=== PATIENT | male | born 1975 | race Caucasian/White ===

== ENCOUNTER 2019-02-23 21:03 | Emergency (ER) | payer SELFPAY ==
[2019-02-23] MEDS ORDERED: LIDOCAINE 1% INJ-PF (10 MG/ML) 30 ML SDV INJ ONE (23:27)
[2019-02-23] MEDS ORDERED: OXYCODONE-ACETAMINOPHEN 5-325 MG TABLET PO ONE (23:28)
[2019-02-23] MEDS ORDERED: PROMETHAZINE HCL 25 MG TABLET PO ONE (23:28)
--- NOTE | 2019-02-23 23:29 | ER Document Report ---
ED Skin Rash/Insect Bite/Abscs - General Chief Complaint: Abscess Stated Complaint: LUMP IN RIGHT ARMPIT Time Seen by Provider: 02/23/19 23:23 Primary Care Provider: OSMAN BAZZI [NO LOCAL MD] - Follow up as needed Notes: Patient is a 43-year-old male that comes to the emergency department for chief complaint of abscess under his right armpit. This is been there for approximately 1 week, he states he thinks he was bitten by an ant in this location first. He states that he did squeeze and drain out a lot of pus but this still did not resolve. He denies fever/chills, nausea/vomiting. He is not a diabetic. Only past medical history reported his hypertension, medicated. TRAVEL OUTSIDE OF THE [place] IN LAST 30 DAYS: No - Related Data Allergies/Adverse Reactions: erythromycin base [Erythromycin Base] Allergy (Verified 01/26/11 11:24) Past Medical History - General Information source: Patient - Social History Smoking Status: Never Smoker Frequency of alcohol use: None Drug Abuse: None Lives with: Family Family History: Reviewed & Not Pertinent - Past Medical History Cardiac Medical History: Reports: Hx Hypertension - Immunizations Immunizations up to date: Yes Hx Diphtheria, Pertussis, Tetanus Vaccination: Yes Review of Systems - Review of Systems Constitutional: No symptoms reported EENT: No symptoms reported Cardiovascular: No symptoms reported Respiratory: No symptoms reported Gastrointestinal: No symptoms reported Genitourinary: No symptoms reported Male Genitourinary: No symptoms reported Musculoskeletal: No symptoms reported Skin: See HPI Hematologic/Lymphatic: No symptoms reported Neurological/Psychological: No symptoms reported Physical Exam - Vital signs Vitals: Temp Pulse Resp BP Pulse Ox 98.8 F 79 20 165/102 H 96 02/23/19 22:01 02/23/19 22:01 02/23/19 22:01 02/23/19 22:01 02/23/19 22:01 - Notes Notes: GENERAL: Alert, interacts well. No acute distress. HEAD: Normocephalic, atraumatic. EYES: Pupils equal, round, and reactive to light. Extraocular movements intact. ENT: Oral mucosa moist, tongue midline. Oropharynx unremarkable. Airway patent. LUNGS: Clear to auscultation bilaterally, no wheezes, rales, or rhonchi. No respiratory distress. HEART: Regular rate and rhythm. No murmur ABDOMEN: Soft, non-tender. Non-distended. Bowel sounds present in all 4 quadrants. GENITOURINARY: Deferred EXTREMITIES: Moves all 4 extremities spontaneously. No edema, normal radial and dorsalis pedis pulses bilaterally. No cyanosis. BACK: no cervical, thoracic, lumbar midline tenderness. No saddle anesthesia, normal distal neurovascular exam. Moves all extremities in full range of motion. NEUROLOGICAL: Alert and oriented x3. Normal speech. Cranial nerves II through XII grossly intact. SKIN: Large oval-shaped abscess in the right axillary area with no significant surrounding cellulitis. No nearby lymphadenopathy. Skin examination is otherwise unremarkable. Course - Re-evaluation Re-evalutation: There is a large abscess in the right axillary area. No other concerning findings noted. Abscess was drained, irrigated, packed. Placing on Bactrim. I did provide him with some pain medication because of the large area. Area was packed after discussion with patient, he will remove this in 2 days, discussed care, follow-up, return precautions. Patient states understanding and agreement with plan. - Vital Signs Vital signs: Temp Pulse Resp BP Pulse Ox 98.3 F 75 20 160/98 H 98 02/24/19 00:28 02/24/19 00:28 02/24/19 00:28 02/24/19 00:28 02/24/19 00:28 Procedures - Incision and Drainage Right axillary Type: Single Anesthetic type: 1% Lidocaine mL's of anesthetic: 8 I&D procedure: Shurclens applied, Sterile dressing applied Incision Method: Incision made by scalpel Amount/type of drainage: Moderately large amount of purulent and bloody material Discharge - Discharge Clinical Impression: Abscess Condition: Stable Disposition: HOME, SELF-CARE Instructions: Oral Narcotic Medication ([facility]) Additional Instructions: The abscess has been drained and packed. The packing must be removed, I recommend that you remove it in approximately 48 hours. Keep the area clean, clean with soap and water, keep absorbing gauze over the area. Take antibiotic as prescribed, take pain medication if needed. Follow-up with primary care. Return if you worsen including developing or spreading redness, fever/chills, nausea/vomiting, or any other concerning or worsening symptoms. Prescriptions: Morphine Sulfate [Morphine Ir 15 Mg Tablet] 15 mg PO TID #10 tablet Sulfamethoxazole/Trimethoprim [Bactrim Ds Tablet] 1 each PO BID #14 tablet Forms: Return to Work Referrals: LOCALMD,NO [NO LOCAL MD] - Follow up as needed
[2019-02-24] MEDS ORDERED: SULFAMETHOXAZOLE/TRIMETHOPRIM 800-160 MG TABLET PO ONE (00:15)
[2019-02-24 00:37] VITALS: BP 160/98
== END 2019-02-24 00:30 | disposition home or self-care (01) ==
LOC: ER 21:03
DX: L02.411 Cutaneous abscess of right axilla (principal); I10 Essential (primary) hypertension; Z88.3 Allergy status to other anti-infective agents
CPT/HCPCS: 99283; 10060; A6266; J3490

== ENCOUNTER 2020-03-29 01:06 | Emergency (ER) | payer SELFPAY ==
[2020-03-29] MEDS ORDERED: ACETAMINOPHEN 325 MG TABLET PO ONE (01:53)
[2020-03-29] MEDS ORDERED: NORMAL SALINE 1000 ML 1,000 ML IV ONE (01:54)
--- NOTE | 2020-03-29 02:03 | ER Document Report ---
ED General - General Chief Complaint: Shortness Of Breath Stated Complaint: SHORTNESS OF BREATH,HEADACHE Time Seen by Provider: 03/29/20 01:41 Notes: Patient is a 44-year-old male who comes emergency department for chief complaint of difficulty breathing, worsening cough, body aches, and generally not feeling good. He also states he is very thirsty and he is constantly urinating. He was found to have a fever on arrival, patient states he did not realize he had a fever. He reports pain in the right side of his chest especially with cough or deep breaths. He denies vomiting, diarrhea, sore throat, congestion. He states he has a history of hypertension, borderline diabetes not on treatment, smoking. He denies diagnosis of COPD or asthma. He denies recreational drugs or alcohol. He denies sick contacts or recent travel. TRAVEL OUTSIDE OF THE [place] IN LAST 30 DAYS: No - Related Data Allergies/Adverse Reactions: erythromycin base [Erythromycin Base] Allergy (Verified 01/26/11 11:24) Past Medical History - General Information source: Patient - Social History Smoking Status: Current Every Day Smoker Drug Abuse: None Lives with: Family Family History: Reviewed & Not Pertinent - Past Medical History Cardiac Medical History: Reports: Hx Hypertension Endocrine Medical History: Reports: Hx Diabetes Mellitus Type 2 - "borderline", not on meds Renal/ Medical History: Denies: Hx Peritoneal Dialysis - Immunizations Immunizations up to date: Yes Hx Diphtheria, Pertussis, Tetanus Vaccination: Yes Review of Systems - Review of Systems Constitutional: See HPI EENT: No symptoms reported Cardiovascular: See HPI Respiratory: See HPI Gastrointestinal: No symptoms reported Genitourinary: No symptoms reported Male Genitourinary: No symptoms reported Musculoskeletal: No symptoms reported Skin: No symptoms reported Hematologic/Lymphatic: No symptoms reported Neurological/Psychological: No symptoms reported Physical Exam - Vital signs Vitals: Resp BP Pulse Ox 35 H 180/104 H 93 03/29/20 01:40 03/29/20 01:40 03/29/20 01:40 - Notes Notes: GENERAL: Flushed, ill-appearing but alert and cooperative HEAD: Normocephalic, atraumatic. EYES: Pupils equal, round, and reactive to light. Extraocular movements intact. ENT: Oral mucosa very dry, tongue midline. Oropharynx unremarkable. Airway patent. Nares patent, sinuses non-tender, ear canals unremarkable, TM's intact. NECK: Full range of motion. Supple. Trachea midline. No lymphadenopathy. LUNGS: Scattered coarse breath sounds, episodes of coughing, borderline tachypnea. Tenderness along the general chest wall, worse on the right. HEART: Tachycardia, normal rhythm, no murmur ABDOMEN: Soft, non-tender. Non-distended. Bowel sounds present in all 4 quadrants. GENITOURINARY: Deferred EXTREMITIES: Moves all 4 extremities spontaneously. No edema, normal radial and dorsalis pedis pulses bilaterally. No cyanosis. BACK: no cervical, thoracic, lumbar midline tenderness. No saddle anesthesia, normal distal neurovascular exam. Moves all extremities in full range of motion. NEUROLOGICAL: Alert and oriented x3. Normal speech. Cranial nerves II through XII grossly intact. Strength 5/5 in all extremities. PSYCH: Slightly anxious SKIN: Flushed, diaphoretic Course - Re-evaluation Re-evalutation: Patient is ill-appearing, tachycardic, febrile, has scattered coarse breath sounds, borderline tachypnea, but he is able to speak in full sentences. Abdomen is soft and benign, oral pharyngeal exam unremarkable, he is mildly hypoxic and was placed on 2 L nasal cannula. He was doing much better on this, he was given IV fluids and Tylenol, he will be closely reevaluated with septic work-up pending. EKG with borderline ST elevations, this will be repeated. Chest x-ray appears to show bilateral pneumonia, starting on treatment for community-acquired pneumonia, patient is allergic to erythromycin so azithromycin was substituted with doxycycline. I am concerned patient may have coronavirus pneumonia as well based on his x-ray and presentation, given dexamethasone. Patient reevaluated and appears to be worsening. He has more labored breathing and increased tachypnea into the 30s, he has more accessory muscle use. Patient will be placed on BiPAP, moved into the other [facility] area. CBC is unremarkable, chemistry nonspecific, troponin is elevated at 0.09, BNP is elevated at 1200. EKG repeated without significant change, discussed with Dr. Wyatt, she recomme nds CTA. Patient does have a cough and he is randomly grabbing his right chest and crying out, he appears to be having muscle spasm but we will make sure there is no pulmonary infarction, large PE, dissection, or other concerning findings. Patient is also very diaphoretic again. CTA shows pneumonia but no other concerning findings. Patient had to be medicated for pain, he was able to undergo CTA with this, he was placed back on BiPAP and after this his respiratory distress did resolve. Troponin is downtrending. Tachypnea resolved, he is not hypoxic, he is doing much better now. Discussed with patient, will discuss with hospitalist for admission for pneumonia, suspected COVID-19 infection, respiratory distress, oxygen/BiPAP requirement. 03/29/20 07:[address] Goldstein, hospitalist, patient is accepted to the [facility] full admission. - Vital Signs Vital signs: Temp Pulse Resp BP Pulse Ox 98 F 23 H 160/101 H 94 03/29/20 05:00 03/29/20 07:01 03/29/20 07:01 03/29/20 07:01 - Laboratory Result Diagrams: 03/29/20 02:26 03/29/20 02:26 Laboratory results interpreted by me: 03/29/20 03/29/20 03/29/20 02:26 02:26 02:26 RBC 4.34 L RDW 14.2 H [place] % (Auto) 14.5 H VBG pH 7.47 H VBG pCO2 33.2 L Sodium 132.4 L Glucose 224 H Calcium 8.3 L NT-Pro-B Natriuret Pep Total Protein 5.9 L Albumin 3.0 L Urine Protein Urine Glucose (UA) Urine Blood 03/29/20 03/29/20 02:26 06:13 RBC RDW [place] % (Auto) VBG pH VBG pCO2 Sodium Glucose Calcium NT-Pro-B Natriuret Pep 1210 H Total Protein Albumin Urine Protein >=500 H Urine Glucose (UA) >=500 H Urine Blood SMALL H - EKG Interpretation by Me Additional EKG results interpreted by me: EKG shows sinus tachycardia at a rate of 103, QTC of 42, GA interval of 164, T wave inversions in consecutive leads in the lateral leads, borderline ST segment elevation in the anterior leads but this is only 1 mm. Critical Care Note - Critical Care Note Total time excluding time spent on procedures (mins): 35 - Respiratory distress, pneumonia Comments: Please allow 35 minutes of critical care time for evaluation and management of patient with pneumonia, respiratory distress, concerning EKG requiring serial EKGs, elevated troponin. Interventions including oxygen, steroids, IV antibiotics, IV fluids, fever treatment, and BiPAP therapy. Time spent performing multiple re-evaluations, time spent admitting to the hospital. Discharge - Discharge Clinical Impression: Respiratory distress, Elevated troponin Pneumonia Qualifiers: Pneumonia type: due to unspecified organism Laterality: unspecified laterality Lung location: unspecified part of lung Qualified Code(s): J18.9 - Pneumonia, unspecified organism Fever Qualifiers: Fever type: unspecified Qualified Code(s): R50.9 - Fever, unspecified Condition: Stable Disposition: ADMITTED INPATIENT Admitting Provider: Tank (Hospitalist) Unit Admitted: [facility]
--- NOTE | 2020-03-29 02:50 | RADIOLOGY REPORT (SQ) ---
CLINICAL HISTORY: shortness of breath, cough, fever, R sided chest p COMPARISON: None. TECHNIQUE: XR CHEST 1 VIEW 03/29/2020 1:53 AM CDT FINDINGS: The heart is enlarged. There is vague bibasilar airspace disease. There are probable pleural effusions. There is no pneumothorax. There are no acute osseous findings. IMPRESSION: Difficult to exclude bibasilar pneumonia with pleural effusions.
[2020-03-29 02:52] LABS: VENOUS BLOOD BASE EXCESS 0.7 mmol/L; VENOUS BLOOD HCO3 23.6 mmol/L (20-32); VENOUS BLOOD PCO2 33.2 mmHg (35-63); VENOUS BLOOD PH 7.47 (7.30-7.42)
[2020-03-29 02:57] LABS: ABSOLUTE LYMPHOCYTES (AUTO) 1.5 10^3/uL (0.5-4.7); ABSOLUTE MONOCYTES (AUTO) 1.4 10^3/uL (0.1-1.4); ABSOLUTE NEUT (AUTO) 6.8 10^3/uL (1.7-8.2); BASOPHILS % (AUTO) 0.3 % (0-2); EOSINOPHILS % (AUTO) 0.1 % (0-6); HEMATOCRIT 39.6 % (37.9-51.0); HEMOGLOBIN 14.2 g/dL (13.5-17.0); LYMPHOCYTES % (AUTO) 15.1 % (13-45); MEAN CORPUSCULAR HEMOGLOBIN 32.7 pg (27.0-33.4); MEAN CORPUSCULAR HGB CONC 35.8 g/dL (32.0-36.0); MEAN CORPUSCULAR VOLUME 91 fl (80-97); MONOCYTES % (AUTO) 14.5 % (3-13); PLATELET COUNT 151 10^3/uL (150-450); RED BLOOD COUNT 4.34 10^6/uL (4.35-5.55); RED CELL DISTRIBUTION WIDTH 14.2 % (11.5-14.0); TOTAL CELLS COUNTED % (AUTO) 100 %; WHITE BLOOD COUNT 9.7 10^3/uL (4.0-10.5)
[2020-03-29] MEDS ORDERED: CEFTRIAXONE 1 GM/D5W RTU 1 GM/50 ML RTUPB IV ONE (03:03)
[2020-03-29] MEDS ORDERED: DOXYCYCLINE HYCLATE INJ 100 MG VIAL IV ONE (03:03)
[2020-03-29] MEDS ORDERED: DEXAMETHASONE SOD PHOS INJ 10 MG/1 ML VIAL IV ONE (03:05)
[2020-03-29 03:16] LABS: ALKALINE PHOSPHATASE 65 U/L (38-126); ANION GAP 5 (5-19); ASPARTATE AMINO TRANSFERASE 36 U/L (17-59); BILIRUBIN,TOTAL 0.8 mg/dL (0.2-1.3); BLOOD UREA NITROGEN 19 mg/dL (7-20); CALCIUM 8.3 mg/dL (8.4-10.2); CARBON DIOXIDE 26 mmol/L (22-30); CHLORIDE 101 mmol/L (98-107); GLUCOSE 224 mg/dL (75-110); POTASSIUM 3.9 mmol/L (3.6-5.0); TOTAL PROTEIN 5.9 g/dL (6.3-8.2)
[2020-03-29] MEDS ORDERED: ASPIRIN 81 MG TABLET, CHEWABLE PO ONE (03:54)
[2020-03-29] MEDS ORDERED: FENTANYL CITRATE INJ/PF 100 MCG/2 ML AMPUL IV ONE ×2 (04:17→06:01)
--- NOTE | 2020-03-29 05:16 | RADIOLOGY REPORT (SQ) ---
CT ANGIOGRAM CHEST WITH IV CONTRAST: 03/29/2020 4:11 AM CDT HISTORY: 44-year old patient with tachycardia, dyspnea. TECHNIQUE: Postcontrast CT through the chest was performed per protocol for CT angiography. 3D Multiplanar reformations were performed at the workstation. Reconstructed sagittal and coronal images were also obtained through the chest. This exam was performed according to our departmental dose-optimization program, which includes automated exposure control, adjustment of the mA and/or KV according to the patient's size and/or use of iterative reconstruction technique. COMPARISON: None available FINDINGS: The heart size is enlarged. No large pericardial effusion is apparent. No suspicious supraclavicular or axillary lymphadenopathy is seen. There is a prominent right hilar lymph node measuring at least 1.6 cm in short axis dimension. A 1.4 cm right paratracheal lymph node is also noted. The thoracic aorta is within normal limits of size. No filling defects are seen within the pulmonary arteries to suggest a pulmonary artery embolism. The main pulmonary artery is within normal limits of size. The thyroid gland is unremarkable. The central tracheobronchial tree is patent. There is a subpleural nodule at the left lower lobe measuring up to 8 mm on image 61 of 113. A 2 cm nodular opacity at the right upper lobe, best seen on image 51 of 113. There is a 5 mm nodule at the right upper lobe, best seen on image 43 of 113. There is a trace right effusion. There consolidative airspace opacity seen at the right lung base. The bones demonstrate no suspicious lytic or blastic lesion. Visualized hepatic parenchyma is diffusely low in attenuation, suggesting underlying hepatic steatosis. IMPRESSION: There is a trace right pleural effusion with consolidative airspace opacities at the right lower lobe. These are concerning for infection. There are several nodules present and prominent mediastinal and right hilar lymph node. These will need short interval follow-up within three months. PET/CT could also be considered. No filling defect is seen to suggest a pulmonary artery embolism. The cardiac silhouette is enlarged. Hepatic steatosis
[2020-03-29 06:35] LABS: APPEARANCE,URINE CLEAR; BILIRUBIN,URINE NEGATIVE (NEGATIVE); COLOR,URINE YELLOW; GLUCOSE, URINE >=500 mg/dL (NEGATIVE); KETONES,URINE NEGATIVE (NEGATIVE); LEUKOCYTE ESTERASE,URINE NEGATIVE (NEGATIVE); NITRITE,URINE NEGATIVE (NEGATIVE); PROTEIN,URINE >=500 mg/dL (NEGATIVE); URINE SPECIFIC GRAVITY 1.045; UROBILINOGEN,URINE NEGATIVE mg/dL (<2.0)
--- NOTE | 2020-03-29 07:34 | EKG REPORT ---
SEVERITY:- ABNORMAL ECG - SINUS TACHYCARDIA PROBABLE LEFT ATRIAL ABNORMALITY ABNORMAL T, CONSIDER ISCHEMIA, LATERAL LEADS BORDERLINE PROLONGED QT INTERVAL : Confirmed by: Jignesh Ponce MD 29-Mar-2020 07:34:28
--- NOTE | 2020-03-29 07:36 | EKG REPORT ---
SEVERITY:- ABNORMAL ECG - SINUS TACHYCARDIA LEFT ATRIAL ABNORMALITY ABNORMAL T, CONSIDER ISCHEMIA, LATERAL LEADS : Confirmed by: Jignesh Ponce MD 29-Mar-2020 07:35:00
--- NOTE | 2020-03-29 07:36 | EKG REPORT ---
SEVERITY:- ABNORMAL ECG - SINUS TACHYCARDIA PROBABLE LEFT ATRIAL ABNORMALITY ABNORMAL T, CONSIDER ISCHEMIA, LATERAL LEADS : Confirmed by: Jignesh Ponce MD 29-Mar-2020 07:34:43
--- NOTE | 2020-03-29 09:45 | ER Document Report ---
Doctor's Note Notes: 03/29/20 09:30 Dr. Fu notified me that patient does not desire admission at this time. I went and discussed with the patient that it is recommend he stay for admission due to his pneumonia, possible covid pneumonia and his inability to maintain his stats > 92%. Patient continues to state that he has project that he needs to get completed and does not desire admission. I advised patient that his condition can detorirate quickly and he can . He states that he will call his mom. 03/29/20 09:45 After discussion with his mother, patient continues to desire to leave AMA. He states he is aware that his symptoms could worsen and he could if he leaves. I asked him what pharmacy he wants his medications sent to and he states [facility] or [facility] down the [address] is fine but does not state which of the options he desires. 03/29/20 10:47 I discussed case with Dr. Gonsales who believes this to be viral pneumonia vs atypical pneumonia. Recommends doxycycline for the patient. As patient is currently under admission orders, I am unable to order outpatient medications at this time via the EMR. I discussed this with registration who state that they need a doctors order to transition the patient back to being an er patient. I also discussed with the charge nurse Gabriella to go ahead and place an order for the patient to cancel the admission order per patient desiring to leave againist medical advice. I signed an order for patient to become an emergency department patient again with Nurse Shante and Bella. I was then notified by the nurse that the patient went ahead and left AMA without having the antibiotics prescribed. He told the nurses that I can just prescribe them to a pharmacy without clarifying which one. 03/29/20 10:55 03/29/20 10:58 I called the number provided in the demographics twice in order to reach the patient, each time I was unable to leave a message. On the third try I was able to leave a message instructing the patient to call the emergency department. I have called [facility] and ordered doxycycline 100 mg bid x 10 days with zero refills and amoxicillin 1 g tid x 10 days with zero refills per up to date guidelines I have not received a return call from the patient at this time. Patient left AGAINST MEDICAL ADVICE and extensive time was spent discussing with the patient the severity of his symptoms and attempting to follow up with him to ensure he receives his antibiotics.
[2020-03-29 10:35] VITALS: BP 156/102
== END 2020-03-29 10:36 | disposition home or self-care (01) ==
LOC: ER 01:06 → EH 08:16 → UNDOADMIN 08:16 → ER 10:35
DX: J18.9 Pneumonia, unspecified organism (principal); R50.9 Fever, unspecified; R79.89 Other specified abnormal findings of blood chemistry; R06.03 Acute respiratory distress; I10 Essential (primary) hypertension; Z20.828 Contact with and (suspected) exposure to other viral communicable diseases
CPT/HCPCS: 93005; 96376; 99285; 96361; 96375; 96365; 96367; 36415; 87040; 83605; 85025; 87635; 80053; 81001; 84484; 82803; 83880; 71045; 71275; 93010; J3490; J3010; J7030; J0696; J1100; C9803

== ENCOUNTER 2020-03-31 18:56 | Emergency (ER) | payer SELFPAY | END 2020-03-31 19:45 | disposition left against medical advice (07) | LOC: ER 18:56 | DX: Z53.21 Procedure and treatment not carried out due to patient leaving prior to being seen by health care provider (principal) ==

== ENCOUNTER 2020-04-01 04:48 | Inpatient (IN) | payer SELFPAY ==
[2020-04-01] MEDS ORDERED: IPRATROPIUM/ALBUTEROL 0.5-2.5 MG/3 ML AMPUL NEB ONE (05:21)
[2020-04-01] MEDS ORDERED: METHYLPREDNISOLONE INJ 125 MG/2 ML SDV IV ONE (05:22)
--- NOTE | 2020-04-01 05:23 | ER Document Report ---
ED Respiratory Problem - General Stated Complaint: SHORTNESS OF BREATH Time Seen by Provider: 04/01/20 05:21 Notes: Patient is a 44-year-old male that comes emergency department for chief complaint of difficulty breathing, wheezing, cough, fevers. Patient was seen by me on 03/29/2020 diagnosed with pneumonia and hypoxia, was admitted to the hospital but left shortly after AGAINST MEDICAL ADVICE. Patient was COVID-19 tested at that time and was negative. Patient admits that he is still running fevers, he cannot lie down, he can barely ambulate, and he became so short of breath tonight that he came back in. He is a smoker, has a history of obesity, hypertension, and "borderline diabetes". He denies alcohol or recreational drugs. He denies any sick contacts or recent travel. He denies hospitalizations otherwise. TRAVEL OUTSIDE OF THE [place] IN LAST 30 DAYS: No - Related Data Allergies/Adverse Reactions: erythromycin base [Erythromycin Base] Allergy (Verified 01/26/11 11:24) Past Medical History - General Information source: Patient - Social History Smoking Status: Current Every Day Smoker Drug Abuse: None Lives with: Family Family History: Reviewed & Not Pertinent - Past Medical History Cardiac Medical History: Reports: Hx Hypertension Endocrine Medical History: Reports: Hx Diabetes Mellitus Type 2 - "borderline", not on meds Renal/ Medical History: Denies: Hx Peritoneal Dialysis - Immunizations Immunizations up to date: Yes Hx Diphtheria, Pertussis, Tetanus Vaccination: Yes Review of Systems - Review of Systems Constitutional: See HPI EENT: No symptoms reported Cardiovascular: See HPI Respiratory: See HPI Gastrointestinal: No symptoms reported Genitourinary: No symptoms reported Male Genitourinary: No symptoms reported Musculoskeletal: No symptoms reported Skin: No symptoms reported Hematologic/Lymphatic: No symptoms reported Neurological/Psychological: No symptoms reported Physical Exam - Vital signs Vitals: Temp 99.8 F 04/01/20 04:48 - Notes Notes: GENERAL: Alert, cooperative, in respiratory distress HEAD: Normocephalic, atraumatic. EYES: Pupils equal, round, and reactive to light. Extraocular movements intact. ENT: Oral mucosa moist, tongue midline. Oropharynx unremarkable. Airway patent. NECK: Full range of motion. Supple. Trachea midline. No lymphadenopathy. LUNGS: Tachypnea, very labored breathing, expiratory wheezes throughout, no rales or rhonchi noted. No coughing noted. HEART: Regular rate and rhythm. No murmur ABDOMEN: Soft, non-tender. Non-distended. EXTREMITIES: Moves all 4 extremities spontaneously. Small amount of edema, approximately 1+ bilaterally. Normal radial and dorsalis pedis pulses bilaterally. No cyanosis. BACK: no cervical, thoracic, lumbar midline tenderness. No saddle anesthesia, normal distal neurovascular exam. Moves all extremities in full range of motion. NEUROLOGICAL: Alert and oriented x3. Normal speech. Cranial nerves II through X II grossly intact. Strength 5/5 in all extremities. PSYCH: Normal affect, normal mood. SKIN: Warm, dry, normal turgor. No rashes or lesions noted. Course - Re-evaluation Re-evalutation: 04/01/20 05:35 Patient was 85% oxygen saturation on room air with tachypnea, labored breathing, expiratory wheezes throughout. Patient improved on nasal cannula with his oxygen saturation but continues to have respiratory distress therefore he will be placed on BiPAP. Initiating treatments and repeating work-up. COVID-19 test 3 days ago was negative. Patient is also very hypertensive. On reevaluation after nebs and BiPAP wheezing is resolved, respiratory distress has resolved, lungs are significantly improved on auscultation. Patient states he feels much better. Patient discussed with Dr. Dove. Chest x-ray shows bilateral small bilateral effusions and small opacity, mild interstitial prominence. Troponin is indeterminate but decreased from prior, CBC is unremarkable, chemistry shows hyperglycemia but patient was given de xamethasone by me 3 days ago, no acidosis. BNP was added, placing nitroglycerin paste, patient admits he is out of lisinopril 20 mg, hydrochlorothiazide 25 mg, and amlodipine 10 mg and he was given this as well. Appears to be mixed COPD, CHF, and possible pneumonia components, patient does state that he has been taking his prescribed antibiotic at home. Patient states that he will stay in the hospital and he agrees that he needs to be admitted after he failed to improve and recover at home. Blood pressure is starting to improve, systolic is now 182. 04/01/20 07:[address] Best, hospitalist, patient accepted to [facility] full admission. Patient does state agreement and that he plans to stay. - Vital Signs Vital signs: Temp Pulse Resp BP Pulse Ox 99.8 F 21 H 190/108 H 97 04/01/20 04:48 04/01/20 06:01 04/01/20 05:26 04/01/20 06:01 - Laboratory Result Diagrams: 04/01/20 05:12 04/01/20 05:12 Laboratory results interpreted by me: 04/01/20 04/01/20 04/01/20 05:12 05:12 05:12 RBC 4.30 L VBG pH 7.43 H Sodium 133.3 L Glucose 271 H POC Glucose Calcium 8.0 L NT-Pro-B Natriuret Pep Total Protein 5.7 L Albumin 2.9 L 04/01/20 04/01/20 05:12 05:43 RBC VBG pH Sodium Glucose POC Glucose 285 H Calcium NT-Pro-B Natriuret Pep 1130 H Total Protein Albumin - EKG Interpretation by Me Additional EKG results interpreted by me: EKG shows sinus tachycardia at a rate of 105, inverted T wave in lead V6, normal axis. No T wave inversions or ST segment changes in consecutive leads. QTc 466 Critical Care Note - Critical Care Note Total time excluding time spent on procedures (mins): 35 - Respiratory distress, uncontrolled hypertension, COPD exacerbation Comments: Please allow 35 minutes of critical care time for evaluation and management of patient with respiratory distress and uncontrolled hypertension. Interventions including duo nebs, steroids, oxygen, BiPAP, nitroglycerin, and antihypertensive therapy. Multiple re-evaluations performed, time spent reviewing previous records, time spent admitting to the hospital. Discharge - Discharge Clinical Impression: Respiratory distress, Wheezing, Tobacco abuse, Uncontrolled hypertension, Pleur al effusion Condition: Serious Disposition: ADMITTED INPATIENT Admitting Provider: Estephania (Hospitalist) Unit Admitted: [facility]
[2020-04-01 05:43] LABS: VENOUS BLOOD BASE EXCESS 1.2 mmol/L; VENOUS BLOOD HCO3 25.4 mmol/L (20-32); VENOUS BLOOD PCO2 38.9 mmHg (35-63); VENOUS BLOOD PH 7.43 (7.30-7.42)
[2020-04-01 05:45] LABS: ABSOLUTE LYMPHOCYTES (AUTO) 1.7 10^3/uL (0.5-4.7); ABSOLUTE MONOCYTES (AUTO) 1.2 10^3/uL (0.1-1.4); ABSOLUTE NEUT (AUTO) 7.4 10^3/uL (1.7-8.2); BASOPHILS % (AUTO) 0.3 % (0-2); EOSINOPHILS % (AUTO) 0.4 % (0-6); HEMATOCRIT 40.2 % (37.9-51.0); HEMOGLOBIN 13.9 g/dL (13.5-17.0); LYMPHOCYTES % (AUTO) 16.2 % (13-45); MEAN CORPUSCULAR HEMOGLOBIN 32.3 pg (27.0-33.4); MEAN CORPUSCULAR HGB CONC 34.6 g/dL (32.0-36.0); MEAN CORPUSCULAR VOLUME 93 fl (80-97); MONOCYTES % (AUTO) 11.3 % (3-13); PLATELET COUNT 202 10^3/uL (150-450); SEGMENTED NEUTROPHILS % (AUTO) 71.8 % (42-78); TOTAL CELLS COUNTED % (AUTO) 100 %; WHITE BLOOD COUNT 10.3 10^3/uL (4.0-10.5)
[2020-04-01 05:51] LABS: INTERNATIONAL RATION (INR) 1.07; PROTHROMBIN TIME 13.9 SEC (11.4-15.4)
--- NOTE | 2020-04-01 05:54 | RADIOLOGY REPORT (SQ) ---
EXAM DESCRIPTION: XR CHEST 1 VIEW COMPLETED DATE/TME: 04/01/2020 05:17 CLINICAL HISTORY: 44 years, Male, shortness of breath COMPARISON: 03/29/2020 chest NUMBER OF VIEWS: 1 TECHNIQUE: Portable chest LIMITATIONS: None. FINDINGS: Cardiomegaly. Elevation of the right hemidiaphragm. Small right pleural effusion with adjacent airspace opacity. Small left pleural effusion also suspected. Mild prominence of the pulmonary interstitium. No pneumothorax IMPRESSION: Cardiomegaly with mild interstitial prominence. Small bibasilar effusions, greater on the right. Minimal adjacent airspace opacity copyright 2010 [employer]- All Rights Reserved
[2020-04-01 06:03] LABS: ALBUMIN 2.9 g/dL (3.5-5.0); ALKALINE PHOSPHATASE 75 U/L (38-126); ANION GAP 6 (5-19); ASPARTATE AMINO TRANSFERASE 31 U/L (17-59); BILIRUBIN,TOTAL 0.5 mg/dL (0.2-1.3); BLOOD UREA NITROGEN 16 mg/dL (7-20); CARBON DIOXIDE 26 mmol/L (22-30); CHLORIDE 101 mmol/L (98-107); GLUCOSE 271 mg/dL (75-110); POTASSIUM 3.8 mmol/L (3.6-5.0); TOTAL PROTEIN 5.7 g/dL (6.3-8.2)
[2020-04-01] MEDS ORDERED: NITROGLYCERIN 2% OINTMENT 1 GM PACKET TP ONE (06:42)
[2020-04-01] MEDS ORDERED: HYDROCHLOROTHIAZIDE 25 MG TABLET PO ONE (06:46)
[2020-04-01] MEDS ORDERED: LISINOPRIL 10 MG TABLET PO ONE (06:46)
[2020-04-01] MEDS ORDERED: AMLODIPINE BESYLATE 10 MG TABLET PO ONE (06:46)
[2020-04-01] MEDS ORDERED: FUROSEMIDE INJ/PF 40 MG/4 ML SDV IV ONE (07:52)
[2020-04-01 08:50] LABS: APPEARANCE,URINE CLEAR; BILIRUBIN,URINE NEGATIVE (NEGATIVE); COLOR,URINE YELLOW; GLUCOSE, URINE >=500 mg/dL (NEGATIVE); KETONES,URINE NEGATIVE (NEGATIVE); PROTEIN,URINE 100 mg/dL (NEGATIVE); URINE SPECIFIC GRAVITY 1.009; UROBILINOGEN,URINE NEGATIVE mg/dL (<2.0)
[2020-04-01] MEDS ORDERED: ACETAMINOPHEN 325 MG TABLET PO PRN (08:51)
[2020-04-01] MEDS ORDERED: ALBUTEROL SULFATE 0.083% NEB 2.5 MG/3 ML AMPUL NEB PRN (08:51)
[2020-04-01] MEDS ORDERED: MAG HYDROX/AL HYDROX/SIMETH SUSP 30 ML UDCUP PO PRN (08:51)
[2020-04-01] MEDS ORDERED: ONDANSETRON HCL INJ/PF 4 MG/2 ML SDV IV PRN (08:51)
[2020-04-01] MEDS ORDERED: DEXTROSE 40% GEL 15 GM TUBE PO PRN ×2 (08:56)
[2020-04-01] MEDS ORDERED: DEXTROSE 50%-WATER 25 GM/50 ML DISP.SYRIN IV PRN ×2 (08:56)
[2020-04-01] MEDS ORDERED: GLUCAGON,HUMAN RECOMB 1 MG INJ IM PRN (08:56)
[2020-04-01] MEDS ORDERED: HYDRALAZINE HCL INJ/PF 20 MG/1 ML SDV IV PRN (08:57)
[2020-04-01] MEDS ORDERED: NICOTINE 14 MG/24 HR PATCH.TD24 TD PRN (09:02)
[2020-04-01 09:18] LABS: URINE AMPHETAMINES SCREEN NEGATIVE; URINE BARBITURATES SCREEN NEGATIVE; URINE BENZODIAZEPINES SCREEN NEGATIVE; URINE COCAINE SCREEN NEGATIVE; URINE MARIJUANA (THC) SCREEN NEGATIVE; URINE METHADONE SCREEN NEGATIVE; URINE PHENCYCLIDINE SCREEN NEGATIVE
[2020-04-01] MEDS ORDERED: GUAIFENESIN SYRP 200 MG/10 ML UDC PO PRN (09:22)
--- NOTE | 2020-04-01 09:27 | PDOC H&P ---
History of Present Illness Admission Date/PCP: 04/01/20 07:59 Patient complains of: SOB History of Present Illness: EDUARDO TREJO is a 44 year old male with a history of hypertension and ADHD, who presents to the hospital with complaints of progressive dyspnea as well as cough. Patient has been having these symptoms for the past 4 days and has only gotten worse. His dyspnea occurs at rest and on exertion. Cough is productive of mildly yellowish sputum. Denies any sick exposures. Admits to mild orthopnea and occasional PND. Denies any history of any heart disease lung diseases. Does have history of smoking. Admits to chills but denies fevers. Of note, patient was at the hospital 3 days ago for similar symptoms during which time a CTA of the chest was done that was negative for PE but did show right sided pneumonia. COVID test from that time was negative. Past Medical History Cardiac Medical History: Reports: Hypertension Past Surgical History Past Surgical History: Reports: None Social History Lives with: Family Smoking Status: Current Every Day Smoker Frequency of Alcohol Use: None Hx Recreational Drug Use: No - Advance Directive Resuscitation Status: Full Code Family History Family History: DM, Hypertension, Other - Heart Disease-unspecified Parental Family History Reviewed: Yes Children Family History Reviewed: Unknown Sibling(s) Family History Reviewed.: Yes Medication/Allergy Home Medications: Morphine Sulfate [Morphine Ir 15 Mg Tablet] 15 mg PO TID #10 tablet 02/24/19 Sulfamethoxazole/Trimethoprim [Bactrim Ds Tablet] 1 each PO BID #14 tablet 02/24/19 Amoxicillin 2 tab PO TID #60 tab 03/29/20 Cefpodoxime Proxetil [Vantin 200 mg Tablet] 200 mg PO BID 10 Days #20 tablet 03/29/20 Doxycycline Monohydrate 100 mg PO BID #20 capsule 03/29/20 Allergies/Adverse Reactions: erythromycin base [Erythromycin Base] Allergy (Verified 01/26/11 11:24) Review of Systems Constitutional: PRESENT: chills Eyes: ABSENT: visual disturbances Nose, Mouth, and Throat: ABSENT: headache(s) Cardiovascular: PRESENT: chest pain - pleuritic, orthropnea Respiratory: PRESENT: cough, dyspnea, sputum Gastrointestinal: PRESENT: bloating, nausea. ABSENT: abdominal pain, diarrhea, vomiting Genitourinary: ABSENT: dysuria Integumentary: ABSENT: diaphoresis Neurological: ABSENT: dizziness Endocrine: ABSENT: cold intolerance Hematologic/Lymphatic: ABSENT: easy bleeding Physical Exam Vital Signs: Temp Pulse Resp BP Pulse Ox 99.8 F 23 H 182/110 H 97 04/01/20 04:48 04/01/20 07:47 04/01/20 07:47 04/01/20 07:47 Intake & Output 03/31/20 04/01/20 04/02/20 06:59 06:59 06:59 Weight 134.3 kg General appearance: PRESENT: cooperative, mild distress, morbidly obese, well- nourished Head exam: PRESENT: normocephalic Neck exam: ABSENT: JVD Respiratory exam: PRESENT: prolonged expiratory phas, symmetrical, tachypnea, wheezes. ABSENT: accessory muscle use, retraction Cardiovascular exam: PRESENT: RRR, +S1, +S2. ABSENT: systolic murmur, tachycardia GI/Abdominal exam: PRESENT: distended, normal bowel sounds, soft. ABSENT: firm, guarding, rebound, rigid, tenderness Extremities exam: PRESENT: +1 edema - Bilateral lower extremity. ABSENT: calf tenderness Musculoskeletal exam: PRESENT: ambulatory Neurological exam: PRESENT: alert, awake, oriented to person, oriented to place, oriented to time, oriented to situation Psychiatric exam: ABSENT: agitated, anxious Focused psych exam: ABSENT: pressured speech Skin exam: ABSENT: jaundice Results Laboratory Results: 04/01/20 05:12 04/01/20 05:12 04/01/20 04/01/20 04/01/20 05:12 05:12 05:12 WBC 10.3 RBC 4.30 L Hgb 13.9 Hct 40.2 MCV 93 MCH 32.3 MCHC 34.6 RDW 14.0 Plt Count 202 Seg Neutrophils % 71.8 VBG pH 7.43 H VBG pCO2 38.9 VBG HCO3 25.4 VBG Base Excess 1.2 Sodium 133.3 L Potassium 3.8 Chloride 101 Carbon Dioxide 26 Anion Gap 6 BUN 16 Creatinine 0.84 Est GFR ( Amer) > 60 Glucose 271 H Lactic Acid Calcium 8.0 L Total Bilirubin 0.5 AST 31 Alkaline Phosphatase 75 Total Protein 5.7 L Albumin 2.9 L Urine Color Urine Appearance Urine pH Ur Specific [place] Urine Protein Urine Glucose (UA) Urine Ketones Urine Blood Urine RBC (Auto) 07/11/20 07/11/20 05:12 08:20 WBC RBC Hgb Hct MCV MCH MCHC RDW Plt Count Seg Neutrophils % VBG pH VBG pCO2 VBG HCO3 VBG Base Excess Sodium Potassium Chloride Carbon Dioxide Anion Gap BUN Creatinine Est GFR ( Amer) Glucose Lactic Acid 1.1 Calcium Total Bilirubin AST Alkaline Phosphatase Total Protein Albumin Urine Color YELLOW Urine Appearance CLEAR Urine pH 6.0 Ur Specific [place] 1.009 Urine Protein 100 H Urine Glucose (UA) >=500 H Urine Ketones NEGATIVE Urine Blood SMALL H Urine RBC (Auto) 1 04/01/20 04/01/20 05:12 05:12 Troponin I 0.051 NT-Pro-B Natriuret Pep 1130 H Impressions: Chest X-Ray 04/01/20 05:17 IMPRESSION: Cardiomegaly with mild interstitial prominence. Small bibasilar effusions, greater on the right. Minimal adjacent airspace opacity copyright 2011 [employer]- All Rights Reserved Assessment and Plan - Diagnosis (1) Acute respiratory failure with hypoxia Is this a current diagnosis for this admission?: Yes Plan: Patient presented with significant hypoxia with SPO2 dropping into the low 80s even on nasal cannula. Had to be placed on BiPAP. Likely multifactorial secondary to pneumonia, acute pulmonary edema and bronchospasms During my examination, patient seemed to have improved in terms of his breathing and was able to take patient off BiPAP and placed on nasal cannula. We will continue to monitor closely. (2) Acute diastolic heart failure Is this a current diagnosis for this admission?: Yes Plan: Presents with acute pulmonary edema secondary to diastolic heart failure from hypertensive emergency Goal is to optimize patient's blood pressure control. Give a dose of IV Lasix now. Resume patient's home blood pressure medications. IV hydralazine as needed. Hopefully we can avoid the need for drip at this point since blood pressures are starting to improve. Check echocardiogram. EKG reviewed. Strict I's and O's, campus monitor. (3) Hypertensive emergency Is this a current diagnosis for this admission?: Yes Plan: Uncontrolled blood pressure with systolic BP in the 200s on presentation. Patient states he ran out of his medications which is likely the cause of his hypertensive emergency. Awaiting completion of med rec.patient has been given a dose of his home BP meds which include lisinopril, amlodipine and hydrochlorothiazide. Elevated troponin likely secondary to demand ischemia from uncontrolled hypertension. Repeat troponin. (4) Community acquired pneumonia Qualifiers: Laterality: right Lung location: lower lobe of lung Qualified Code(s): J18.9 - Pneumonia, unspecified organism Is this a current diagnosis for this admission?: Yes Plan: Right lower lobe pneumonia noted on CTA from 03/29 2020. Not septic. COVID-19 PCR test on 03/29/2020 was also negative. Will treat with Levaquin. Apparently patient was on doxycycline at home. Obtain sputum cultures. Blood cultures already obtained. Guaifenesin (5) Hyperglycemia Is this a current diagnosis for this admission?: Yes Plan: Blood glucose in the 200s indicating that patient likely has new onset diabetes mellitus likely type II. Will check hemoglobin A1c with a.m. labs. Placed on Accu-Cheks. Sliding scale insulin coverage. Diabetic diet. (6) Wheezing Is this a current diagnosis for this admission?: Yes Plan: Patient has extensive smoking history. Likely has COPD and is having an exacerbation. Has never been diagnosed with COPD before. We will place patient on frequent nebulizer treatments. Received IV steroids in the ER. Will place on oral prednisone. Venous blood gas shows no CO2 retention. (7) Pleural effusion Is this a current diagnosis for this admission?: Yes Plan: Small amount of bilateral effusions. Will monitor. No need for thoracentesis given the small amount. (8) Tobacco abuse Is this a current diagnosis for this admission?: Yes Plan: Nicotine patch offered (9) Morbid obesity with BMI of 40.0-44.9, adult Is this a current diagnosis for this admission?: Yes Plan: Check lipid panel and dietary modifications. Check TSH. - Time Time Spent with patient: 35 or more minutes
--- NOTE | 2020-04-01 09:53 | EKG REPORT ---
SEVERITY:- ABNORMAL ECG - SINUS TACHYCARDIA LEFT ATRIAL ABNORMALITY NONSPECIFIC T ABNORMALITIES, LATERAL LEADS : Confirmed by: Jignesh Ponce MD 01-Apr-2020 09:52:59
[2020-04-01] MEDS: GUAIFENESIN 600 MG TABLET.SA PO SCH ×2 (10:46→21:39)
[2020-04-01] MEDS: ENOXAPARIN SODIUM INJ 40 MG/0.4 ML DISP.SYRIN SUBCUT SCH (10:46)
[2020-04-01] MEDS: LEVOFLOXACIN 750 MG/D5W RTU 750 MG/150 ML RTUPB IV SCH (10:47)
[2020-04-01] MEDS: IPRATROPIUM/ALBUTEROL 0.5-2.5 MG/3 ML AMPUL NEB SCH ×2 (14:00→19:50)
[2020-04-01] MEDS: INSULIN LISPRO 100 UNIT/ML 3 ML VIAL SUBCUT SCH ×3 (14:19→21:38)
[2020-04-01] MEDS: METFORMIN HCL 500 MG TABLET PO SCH (16:45)
[2020-04-01] MEDS ORDERED: (PENDING PHARMACY ID) (Dextroamphetamine/Amphetamine [Adderall 30 Mg Tablet] 30 MG) PO SCH (18:00)
[2020-04-01] MEDS: FUROSEMIDE INJ/PF 40 MG/4 ML SDV IV SCH (18:04)
[2020-04-01] MEDS: TRAMADOL HCL 50 MG TABLET PO PRN (20:21)
[2020-04-01] MEDS: LISINOPRIL 10 MG TABLET PO SCH (21:39)
[2020-04-02] MEDS: IPRATROPIUM/ALBUTEROL 0.5-2.5 MG/3 ML AMPUL NEB SCH ×4 (02:04→19:46)
[2020-04-02 05:35] LABS: ABSOLUTE LYMPHOCYTES (AUTO) 1.9 10^3/uL (0.5-4.7); ABSOLUTE MONOCYTES (AUTO) 1.6 10^3/uL (0.1-1.4); ABSOLUTE NEUT (AUTO) 10.9 10^3/uL (1.7-8.2); BASOPHILS % (AUTO) 0.2 % (0-2); EOSINOPHILS % (AUTO) 0.2 % (0-6); HEMATOCRIT 40.2 % (37.9-51.0); LYMPHOCYTES % (AUTO) 13.1 % (13-45); MEAN CORPUSCULAR HEMOGLOBIN 32.4 pg (27.0-33.4); MEAN CORPUSCULAR HGB CONC 34.9 g/dL (32.0-36.0); MEAN CORPUSCULAR VOLUME 93 fl (80-97); MONOCYTES % (AUTO) 10.9 % (3-13); PLATELET COUNT 243 10^3/uL (150-450); RED BLOOD COUNT 4.33 10^6/uL (4.35-5.55); RED CELL DISTRIBUTION WIDTH 14.2 % (11.5-14.0); SEGMENTED NEUTROPHILS % (AUTO) 75.6 % (42-78); TOTAL CELLS COUNTED % (AUTO) 100 %; WHITE BLOOD COUNT 14.4 10^3/uL (4.0-10.5)
[2020-04-02 05:50] LABS: BLOOD UREA NITROGEN 25 mg/dL (7-20); CARBON DIOXIDE 30 mmol/L (22-30); CHLORIDE 99 mmol/L (98-107); CHOLESTEROL 142.63 mg/dL (0-200); GLUCOSE 215 mg/dL (75-110); POTASSIUM 3.8 mmol/L (3.6-5.0); TRIGLYCERIDES 128 mg/dL (<150)
[2020-04-02 05:54] LABS: CALCIUM 8.5 mg/dL (8.4-10.2); PHOSPHORUS 4.1 mg/dL (2.5-4.5)
[2020-04-02 06:02] LABS: DIRECT LDL 84 mg/dL (<100)
[2020-04-02 06:03] LABS: ANION GAP 5 (5-19)
[2020-04-02] MEDS ORDERED: HYDROCHLOROTHIAZIDE 12.5 MG TABLET PO SCH (08:00)
[2020-04-02] MEDS: INSULIN LISPRO 100 UNIT/ML 3 ML VIAL SUBCUT SCH ×4 (08:12→21:30)
[2020-04-02] MEDS: METFORMIN HCL 500 MG TABLET PO SCH ×2 (08:12→17:46)
[2020-04-02] MEDS: TRAMADOL HCL 50 MG TABLET PO PRN ×2 (10:47→21:29)
[2020-04-02] MEDS: PREDNISONE 20 MG TABLET PO SCH (10:48)
[2020-04-02] MEDS: AMLODIPINE BESYLATE 10 MG TABLET PO SCH (10:48)
[2020-04-02] MEDS: POTASSIUM CHLORIDE 10 MEQ TABLET.ER PO SCH (10:48)
[2020-04-02] MEDS: FUROSEMIDE INJ/PF 40 MG/4 ML SDV IV SCH ×2 (10:49→17:43)
[2020-04-02] MEDS: GUAIFENESIN 600 MG TABLET.SA PO SCH ×2 (10:49→21:29)
[2020-04-02] MEDS: LEVOFLOXACIN 750 MG/D5W RTU 750 MG/150 ML RTUPB IV SCH (10:49)
[2020-04-02] MEDS: LISINOPRIL 10 MG TABLET PO SCH ×2 (10:49→21:29)
[2020-04-02] MEDS: ENOXAPARIN SODIUM INJ 40 MG/0.4 ML DISP.SYRIN SUBCUT SCH (10:50)
[2020-04-02] MEDS: CHLORTHALIDONE 25 MG TABLET PO SCH (10:51)
--- NOTE | 2020-04-02 14:29 | PDOC PROGRESS REPORT ---
Subjective Progress Note for:: 04/02/20 Subjective:: Patient feels better in terms of his breathing. Denies any chest pain. Discussed with him that he has new onset diabetes mellitus likely type II. Explained plan of treatment to him. Reason For Visit: HYPOXIA,PNA Physical Exam Vital Signs: Temp Pulse Resp BP Pulse Ox 98.4 F 95 17 167/98 H 95 04/02/20 11:49 04/02/20 11:49 04/02/20 11:49 04/02/20 11:49 04/02/20 11:49 Intake & Output 04/01/20 04/02/20 04/03/20 06:59 06:59 06:59 Intake Total 874 462 Output Total 3480 1150 Balance -9324 -310 Weight 134.3 kg 129.2 kg General appearance: PRESENT: no acute distress, cooperative Neck exam: ABSENT: JVD Respiratory exam: PRESENT: crackles - Lung base, symmetrical, unlabored. ABSENT: accessory muscle use, retraction, tachypnea, wheezes Cardiovascular exam: PRESENT: RRR, +S1, +S2. ABSENT: tachycardia GI/Abdominal exam: PRESENT: normal bowel sounds, soft. ABSENT: rebound, rigid, tenderness Neurological exam: PRESENT: alert, awake, oriented to person, oriented to place, oriented to time Results Laboratory Results: 04/02/20 05:07 04/02/20 05:07 04/02/20 04/02/20 04/02/20 05:07 05:07 05:07 WBC 14.4 H RBC 4.33 L Hgb 14.0 Hct 40.2 MCV 93 MCH 32.4 MCHC 34.9 RDW 14.2 H Plt Count 243 Seg Neutrophils % 75.6 Sodium 133.4 L Potassium 3.8 Chloride 99 Carbon Dioxide 30 Anion Gap 5 BUN 25 H Creatinine 0.88 Est GFR ( Amer) > 60 Glucose 215 H Calcium 8.5 Phosphorus 4.1 Magnesium 2.2 Triglycerides 128 Cholesterol 142.63 LDL Cholesterol Direct 84 VLDL Cholesterol 26.0 HDL Cholesterol 38 L TSH 1.66 04/01/20 04/01/20 04/01/20 05:12 05:12 12:47 Troponin I 0.051 0.033 NT-Pro-B Natriuret Pep 1130 H Impressions: Chest X-Ray 04/01/20 05:17 IMPRESSION: Cardiomegaly with mild interstitial prominence. Small bibasilar effusions, greater on the right. Minimal adjacent airspace opacity copyright 2011 [employer]- All Rights Reserved Assessment and Plan - Diagnosis (1) Acute respiratory failure with hypoxia Is this a current diagnosis for this admission?: Yes Plan: Patient presented on admission with significant hypoxia with SPO2 dropping into the low 80s even on nasal cannula. Had to be placed on BiPAP. Likely multifactorial secondary to pneumonia, acute pulmonary edema and bronchospasms Currently, patient is on 4 L nasal cannula. We will continue to diurese and treat patient with bronchodilators and attempt to wean patient's oxygen as tolerated. (2) Acute diastolic heart failure Is this a current diagnosis for this admission?: Yes Plan: Presents with acute pulmonary edema secondary to diastolic heart failure from hypertensive emergency Goal is to optimize patient's blood pressure control. Continue IV Lasix twice a day. Patient diuresed very well. P.o. antihypertensives. IV hydralazine as needed. Monitor renal function and electrolytes. Check echocardiogram tomorrow. EKG reviewed. Strict I's and O's, laboratory monitor. (3) Hypertensive emergency Is this a current diagnosis for this admission?: Yes Plan: Uncontrolled blood pressure with systolic BP in the 200s on presentation. Patient states he ran out of his medications which is likely the cause of his hypertensive emergency. Elevated troponin likely secondary to demand ischemia from uncontrolled hypertension. Trended downwards. Lisinopril 20 twice daily, amlodipine 10 mg daily, chlorthalidone 25 mg daily. If BP still uncontrolled on this regimen, may need to add a fourth agent. (4) Community acquired pneumonia Qualifiers: Laterality: right Lung location: lower lobe of lung Qualified Code(s): J18.9 - Pneumonia, unspecified organism Is this a current diagnosis for this admission?: Yes Plan: Right lower lobe pneumonia noted on CTA from 03/29 2020. COVID-19 PCR test on 03/29/2020 was also negative. Will treat with Levaquin. Apparently patient was on doxycycline at home. Sputum cultures. Blood cultures already obtained. Guaifenesin (5) Diabetes mellitus, new onset Is this a current diagnosis for this admission?: Yes Plan: Hemoglobin A1c of 8.5. Likely type 2 diabetes mellitus. Lipid panel is unremarkable. I have started patient on metformin twice daily. Diabetes education. Continue to monitor Accu-Cheks. Sliding scale insulin coverage. (6) Wheezing Is this a current diagnosis for this admission?: Yes Plan: Patient has extensive smoking history. Likely has COPD and is having an acute exacerbation. Has never been diagnosed with COPD before. We will place patient on frequent nebulizer treatments. Continue oral prednisone. Venous blood gas shows no CO2 retention. (7) Pleural effusion Is this a current diagnosis for this admission?: Yes Plan: Small amount of bilateral effusions. Will monitor. No need for thoracentesis given the small amount. (8) Tobacco abuse Is this a current diagnosis for this admission?: Yes Plan: Nicotine patch offered (9) Morbid obesity with BMI of 40.0-44.9, adult Is this a current diagnosis for this admission?: Yes Plan: Check lipid panel and dietary modifications. Check TSH. - Time Time Spent with patient: 15-24 minutes
[2020-04-03] MEDS: IPRATROPIUM/ALBUTEROL 0.5-2.5 MG/3 ML AMPUL NEB SCH ×4 (02:13→21:28)
[2020-04-03 06:29] LABS: HEMATOCRIT 42.5 % (37.9-51.0); HEMOGLOBIN 14.6 g/dL (13.5-17.0); MEAN CORPUSCULAR HEMOGLOBIN 32.1 pg (27.0-33.4); MEAN CORPUSCULAR HGB CONC 34.3 g/dL (32.0-36.0); MEAN CORPUSCULAR VOLUME 94 fl (80-97); PLATELET COUNT 254 10^3/uL (150-450); RED BLOOD COUNT 4.55 10^6/uL (4.35-5.55); WHITE BLOOD COUNT 10.8 10^3/uL (4.0-10.5)
[2020-04-03 06:39] LABS: ANION GAP 6 (5-19); BLOOD UREA NITROGEN 29 mg/dL (7-20); CALCIUM 8.4 mg/dL (8.4-10.2); CARBON DIOXIDE 32 mmol/L (22-30); CHLORIDE 97 mmol/L (98-107); GLUCOSE 166 mg/dL (75-110); POTASSIUM 3.8 mmol/L (3.6-5.0)
[2020-04-03 07:45] LABS: ABSOLUTE LYMPHOCYTES# (MANUAL) 2.9 10^3/uL (0.5-4.7); BASOPHILS % (MANUAL) 0 % (0-2); EOSINOPHILS % (MANUAL) 0 % (0-6); LYMPHOCYTES % (MANUAL) 19 % (13-45); METAMYELOCYTES % (MANUAL) 1 % (0-1); MONOCYTES % (MANUAL) 9 % (3-13); SEGMENTED NEUTROPHILS % (MAN) 63 % (42-78); TOTAL CELLS COUNTED 100
[2020-04-03 07:46] LABS: ANISOCYTOSIS SLIGHT; POLYCHROMASIA SLIGHT
[2020-04-03 07:47] LABS: PLATELET COMMENT ADEQUATE
[2020-04-03] MEDS: INSULIN LISPRO 100 UNIT/ML 3 ML VIAL SUBCUT SCH ×4 (08:04→22:11)
[2020-04-03] MEDS: METFORMIN HCL 500 MG TABLET PO SCH ×2 (08:04→16:20)
[2020-04-03] MEDS: CHLORTHALIDONE 25 MG TABLET PO SCH (08:04)
[2020-04-03] MEDS ORDERED: ONDANSETRON HCL INJ/PF 4 MG/2 ML SDV IV PRN (09:00)
[2020-04-03] MEDS ORDERED: HYDRALAZINE HCL INJ/PF 20 MG/1 ML SDV IV PRN ×2 (09:00→12:30)
[2020-04-03] MEDS: LEVOFLOXACIN 750 MG/D5W RTU 750 MG/150 ML RTUPB IV SCH (09:29)
[2020-04-03] MEDS: FUROSEMIDE INJ/PF 40 MG/4 ML SDV IV SCH (09:32)
[2020-04-03] MEDS: LISINOPRIL 10 MG TABLET PO SCH ×2 (09:32→22:09)
[2020-04-03] MEDS: AMLODIPINE BESYLATE 10 MG TABLET PO SCH (09:32)
[2020-04-03] MEDS: POTASSIUM CHLORIDE 10 MEQ TABLET.ER PO SCH (09:32)
[2020-04-03] MEDS: GUAIFENESIN 600 MG TABLET.SA PO SCH ×2 (09:33→22:09)
[2020-04-03] MEDS: PREDNISONE 20 MG TABLET PO SCH (09:33)
[2020-04-03] MEDS: ENOXAPARIN SODIUM INJ 40 MG/0.4 ML DISP.SYRIN SUBCUT SCH (09:33)
--- NOTE | 2020-04-03 11:56 | PDOC PROGRESS REPORT ---
Subjective Progress Note for:: 04/03/20 Subjective:: Patient continues to feel better. Breathing has improved. Still quite hypoxic requiring about 4 L nasal cannula. Diuresing well. Denies any chest pain or muscle cramps. Reason For Visit: HYPOXIA,PNA Physical Exam Vital Signs: Temp Pulse Resp BP Pulse Ox 98.6 F 86 18 136/77 H 90 L 04/03/20 07:53 04/03/20 09:03 04/03/20 09:03 04/03/20 07:53 04/03/20 09:03 Intake & Output 04/02/20 04/03/20 04/04/20 06:59 06:59 06:59 Intake Total 874 1551 Output Total 3480 4540 Balance -8794 -8992 Weight 129.2 kg 127.6 kg General appearance: PRESENT: no acute distress, cooperative Neck exam: ABSENT: JVD Respiratory exam: PRESENT: crackles, symmetrical, unlabored. ABSENT: tachypnea, wheezes Cardiovascular exam: PRESENT: RRR, +S1, +S2. ABSENT: tachycardia GI/Abdominal exam: PRESENT: soft. ABSENT: rebound, rigid, tenderness Extremities exam: PRESENT: pedal edema, +1 edema. ABSENT: calf tenderness Neurological exam: PRESENT: alert, awake, oriented to person, oriented to place, oriented to time Results Laboratory Results: 04/03/20 05:07 04/03/20 05:07 04/03/20 04/03/20 05:07 05:07 WBC 10.8 H RBC 4.55 Hgb 14.6 Hct 42.5 MCV 94 MCH 32.1 MCHC 34.3 RDW 14.0 Plt Count 254 Seg Neutrophils % Not Reportable Sodium 134.6 L Potassium 3.8 Chloride 97 L Carbon Dioxide 32 H Anion Gap 6 BUN 29 H Creatinine 1.03 Est GFR ( Amer) > 60 Glucose 166 H Calcium 8.4 Magnesium 2.1 04/01/20 16:40 Sputum Gram Stain - Final 04/01/20 16:40 Sputum Sputum Culture - Final 04/01/20 04/01/20 04/01/20 05:12 05:12 12:47 Troponin I 0.051 0.033 NT-Pro-B Natriuret Pep 1130 H Impressions: Chest X-Ray 04/01/20 05:17 IMPRESSION: Cardiomegaly with mild interstitial prominence. Small bibasilar effusions, greater on the right. Minimal adjacent airspace opacity copyright 2011 [employer]- All Rights Reserved Assessment and Plan - Diagnosis (1) Acute respiratory failure with hypoxia Is this a current diagnosis for this admission?: Yes Plan: Patient presented on admission with significant hypoxia with SPO2 dropping into the low 80s even on nasal cannula. Patient has no longer required BiPAP since admission. Likely multifactorial secondary to pneumonia, acute pulmonary edema and bronchospasms Currently, patient is on 4 L nasal cannula. We will continue to diurese and treat patient's pneumonia as well as bronchodilators and attempt to wean patient's oxygen as tolerated. Add incentive spirometer to be done frequently. (2) Acute diastolic heart failure Is this a current diagnosis for this admission?: Yes Plan: Presents with acute pulmonary edema secondary to diastolic heart failure from hypertensive emergency Goal is to optimize patient's blood pressure control. Patient diuresed very well for the past 2 days. Will change IV Lasix to daily dosing given mild creatinine bump and increased bicarb. P.o. antihypertensives. IV hydralazine as needed. Monitor renal function and electrolytes. Check echocardiogram today. Strict I's and O's, public health educator. (3) Hypertensive emergency Is this a current diagnosis for this admission?: Yes Plan: Hypertensive emergency is currently resolved. Blood pressure is better controlled now. Lisinopril 20 twice daily, amlodipine 10 mg daily, chlorthalidone 25 mg daily. (4) Community acquired pneumonia Qualifiers: Laterality: right Lung location: lower lobe of lung Qualified Code(s): J18.9 - Pneumonia, unspecified organism Is this a current diagnosis for this admission?: Yes Plan: Right lower lobe pneumonia noted on CTA from 03/29 2020. COVID-19 PCR test on 03/29/2020 was also negative. Will treat with Levaquin day 11/26-switch to p.o. starting tomorrow. Apparently patient was on doxycycline at home. Sputum Gram stain essentially negative. Blood cultures negative at 48 hours. Guaifenesin (5) Diabetes mellitus, new onset Is this a current diagnosis for this admission?: Yes Plan: Hemoglobin A1c of 8.5. Likely type 2 diabetes mellitus. Lipid panel is unremarkable. I have started patient on metformin twice daily. outreach educator and dietitian consulted. Continue to monitor Accu-Cheks. Sliding scale insulin coverage. (6) Wheezing Is this a current diagnosis for this admission?: Yes Plan: Patient has extensive smoking history. Likely has COPD and is having an acute exacerbation. Has never been diagnosed with COPD before. We will place patient on frequent nebulizer treatments. Wheezing has resolved today on exam. Continue oral prednisone-plan to discontinue after tomorrow's dose. Venous blood gas shows no CO2 retention. (7) Pleural effusion Is this a current diagnosis for this admission?: Yes Plan: Small amount of bilateral effusions. Will monitor. No need for thoracentesis given the small amount. (8) Tobacco abuse Is this a current diagnosis for this admission?: Yes Plan: Nicotine patch offered (9) Morbid obesity with BMI of 40.0-44.9, adult Is this a current diagnosis for this admission?: Yes Plan: Dietitian consulted. TSH is normal. - Time Time Spent with patient: Less than 15 minutes
--- NOTE | 2020-04-03 19:50 | XCELERA REPORT ---
[address] [address] Transthoracic Echocardiogram Report Name: EDUARDO TREJO Age: 44 yrs Gender: Male : 1975 Patient Status: Inpatient Patient Location: [address] [place] [address] Study Date: 04/03/2020 07:18 AM Height: 69 in Weight: 296 lb BSA: 2.4 m2 Procedure: A two-dimensional transthoracic echocardiogram with color flow and Doppler was performed. Study Quality: Fair. Reason For Study: likely diastolic heart failure. (Dr. Restrepo to read) History: diastolic heart failure. (Dr. Restrepo to read). Ordering Physician: JOHNIE JAY Performed By: Dimple Wood Interpretation Summary The left ventricle is normal in size. There is moderate concentric left ventricular hypertrophy. LV EF is 60% Left ventricular systolic function is normal. Doppler measurements suggest normal left ventricular diastolic function The left ventricular wall motion is normal. There is no thrombus. No ASD ,VSD , or PFO seen. The right ventricle is normal in size and function. The right atrium is normal. The left atrium is borderline dilated. There is no evidence of mitral valve prolapse. There is no vegetation seen on the mitral valve. There is no mitral valve stenosis. There is no mitral regurgitation noted. There is no aortic valvular vegetation. There is mild aortic stenosis There is a peak gradient of 20 mm of Hg. No hemodynamically significant valvular aortic stenosis. There is no LVOT obstruction. There is a mild amount of aortic regurgitation There is no tricuspid stenosis. There is a trace amount of tricuspid regurgitation Upper normal RVSP to early mild pulmonary hypertension.RVSP is 27 to 32 mm of Hg , with RA mean of 5 to 20. There is no pulmonic valvular stenosis. There is a trace amount of pulmonic regurgitation The aortic root is normal size. The inferior vena cava appeared normal and decreased > 50% with respiration (RAP 5-10 mmHg) There is no pericardial effusion. MMode/2D Measurements & Calculations RVDd: 2.7 cm LVIDd: 5.9 cm FS: 29.6 % Ao root diam: 3.5 cm IVSd: 1.4 cm LVIDs: 4.1 cm EDV(Teich): 171.2 ml Ao root area: 9.8 cm2 LVPWd: 1.4 cm ESV(Teich): 75.7 ml EF(Teich): 55.8 % Doppler Measurements & Calculations MV E max elena: MV dec slope: Ao V2 max: LV V1 max P.2 cm/sec 683.9 cm/sec2 221.2 cm/sec 8.2 mmHg MV A max elena: MV dec time: Ao max PG: LV V1 max: 96.2 cm/sec 0.16 sec 19.6 mmHg 143.3 cm/sec MV E/A: 1.1 PA V2 max: PI end-d elena: TR max elena: 103.8 cm/sec 83.7 cm/sec 235.9 cm/sec PA max P.3 mmHg TR max P.3 mmHg Left Ventricle The left ventricle is normal in size. There is moderate concentric left ventricular hypertrophy. LV EF is 60%. Left ventricular systolic function is normal. Doppler measurements suggest normal left ventricular diastolic function. The left ventricular wall motion is normal. There is no thrombus. No ASD ,VSD , or PFO seen. Right Ventricle The right ventricle is normal in size and function. Atria The right atrium is normal. The left atrium is borderline dilated. Mitral Valve There is no evidence of mitral valve prolapse. There is no vegetation seen on the mitral valve. There is no mitral valve stenosis. There is no mitral regurgitation noted. Aortic Valve There is no aortic valvular vegetation. There is mild aortic stenosis. There is a peak gradient of 20 mm of Hg. No hemodynamically significant valvular aortic stenosis. There is no LVOT obstruction. There is a mild amount of aortic regurgitation. Tricuspid Valve There is no tricuspid stenosis. There is a trace amount of tricuspid regurgitation. Upper normal RVSP to early mild pulmonary hypertension.RVSP is 27 to 32 mm of Hg , with RA mean of 5 to 20. Pulmonic Valve There is no pulmonic valvular stenosis. There is a trace amount of pulmonic regurgitation. Great Vessels The aortic root is normal size. The inferior vena cava appeared normal and decreased > 50% with respiration (RAP 5-10 mmHg). Effusions There is no pericardial effusion. : JOHNIE JAY Lakshmi
[2020-04-04] MEDS: IPRATROPIUM/ALBUTEROL 0.5-2.5 MG/3 ML AMPUL NEB SCH ×3 (02:31→14:05)
[2020-04-04 07:44] LABS: ABSOLUTE EOSINOPHILS # (AUTO) 0.1 10^3/uL (0.0-0.6); ABSOLUTE LYMPHOCYTES (AUTO) 2.4 10^3/uL (0.5-4.7); BASOPHILS % (AUTO) 0.3 % (0-2); EOSINOPHILS % (AUTO) 0.7 % (0-6); HEMATOCRIT 43.6 % (37.9-51.0); HEMOGLOBIN 15.1 g/dL (13.5-17.0); LYMPHOCYTES % (AUTO) 25.1 % (13-45); MEAN CORPUSCULAR HEMOGLOBIN 32.1 pg (27.0-33.4); MEAN CORPUSCULAR HGB CONC 34.5 g/dL (32.0-36.0); MEAN CORPUSCULAR VOLUME 93 fl (80-97); MONOCYTES % (AUTO) 10.1 % (3-13); PLATELET COUNT 294 10^3/uL (150-450); RED BLOOD COUNT 4.69 10^6/uL (4.35-5.55); SEGMENTED NEUTROPHILS % (AUTO) 63.8 % (42-78); TOTAL CELLS COUNTED % (AUTO) 100 %; WHITE BLOOD COUNT 9.4 10^3/uL (4.0-10.5)
[2020-04-04 08:02] LABS: ANION GAP 5 (5-19); BLOOD UREA NITROGEN 30 mg/dL (7-20); CALCIUM 8.6 mg/dL (8.4-10.2); CARBON DIOXIDE 30 mmol/L (22-30); CHLORIDE 99 mmol/L (98-107); GLUCOSE 198 mg/dL (75-110); POTASSIUM 3.7 mmol/L (3.6-5.0)
[2020-04-04] MEDS: INSULIN LISPRO 100 UNIT/ML 3 ML VIAL SUBCUT SCH ×2 (08:25→11:27)
[2020-04-04] MEDS: METFORMIN HCL 500 MG TABLET PO SCH (08:28)
[2020-04-04] MEDS: CHLORTHALIDONE 25 MG TABLET PO SCH (08:28)
[2020-04-04] MEDS: GUAIFENESIN 600 MG TABLET.SA PO SCH (09:40)
[2020-04-04] MEDS: AMLODIPINE BESYLATE 10 MG TABLET PO SCH (09:41)
[2020-04-04] MEDS: LISINOPRIL 10 MG TABLET PO SCH (09:42)
[2020-04-04] MEDS: POTASSIUM CHLORIDE 10 MEQ TABLET.ER PO SCH (09:43)
[2020-04-04] MEDS: PREDNISONE 20 MG TABLET PO SCH (09:44)
[2020-04-04] MEDS: ENOXAPARIN SODIUM INJ 40 MG/0.4 ML DISP.SYRIN SUBCUT SCH (09:50)
[2020-04-04] MEDS ORDERED: FUROSEMIDE INJ/PF 40 MG/4 ML SDV IV SCH (10:00)
[2020-04-04] MEDS ORDERED: LEVOFLOXACIN 750 MG TABLET PO SCH (10:00)
[2020-04-04 12:28] VITALS: BP 151/81
--- NOTE | 2020-04-04 12:29 | PDOC DISCHARGE SUMMARY ---
Impression - Admit/DC Date/PCP Admission Date/Primary Care Provider: 04/01/20 07:59 [facility] Discharge Date: 04/04/20 - Discharge Diagnosis (1) Acute respiratory failure with hypoxia Is this a current diagnosis for this admission?: Yes (2) Acute diastolic heart failure Is this a current diagnosis for this admission?: Yes (3) Hypertensive emergency Is this a current diagnosis for this admission?: Yes (4) Community acquired pneumonia Is this a current diagnosis for this admission?: Yes (5) Diabetes mellitus, new onset Is this a current diagnosis for this admission?: Yes (6) Wheezing Is this a current diagnosis for this admission?: Yes (7) Pleural effusion Is this a current diagnosis for this admission?: Yes (8) Tobacco abuse Is this a current diagnosis for this admission?: Yes (9) Morbid obesity with BMI of 40.0-44.9, adult Is this a current diagnosis for this admission?: Yes - Additional Information Resuscitation Status: Full Code Discharge Diet: Cardiac, Diabetic Discharge Activity: Activity As Tolerated, Balance Activity w/Rest, Weigh Daily Referrals: [facility] [Primary Care Provider] - Prescriptions: Albuterol Sulfate [Albuterol Sulfate Hfa] 2 inh IH Q6HP PRN #1 inhaler PRN Reason: Carvedilol [Coreg 6.25 mg Tablet] 6.25 mg PO Q12 #60 tablet Metformin HCl [Glucophage 500 mg Tablet] 750 mg PO BIDACBS 30 Days Chlorthalidone [Hygroton 25 mg Tablet] 50 mg PO QAM 30 Days Levofloxacin [Levaquin 750 mg Tablet] 750 mg PO DAILY 5 Days #5 tablet Lisinopril 20 mg PO Q12 #60 tablet Amlodipine Besylate [Norvasc 10 mg Tablet] 10 mg PO DAILY #30 Budesonide [Pulmicort 90 mcg Flexhaler] 1 inh IH DAILY #1 inhaler Home Medications: Acetaminophen [Tylenol 325 mg Tablet] 650 mg PO Q4HP PRN 04/01/20 Dextroamphetamine/Amphetamine [Adderall 30 mg Tablet] 30 mg PO BID 04/01/20 Albuterol Sulfate [Albuterol Sulfate Hfa] 2 inh IH Q6HP PRN #1 inhaler 04/04/20 Amlodipine Besylate [Norvasc 10 mg Tablet] 10 mg PO DAILY #30 04/04/20 Budesonide [Pulmicort 90 mcg Flexhaler] 1 inh IH DAILY #1 inhaler 04/04/20 Carvedilol [Coreg 6.25 mg Tablet] 6.25 mg PO Q12 #60 tablet 04/04/20 Chlorthalidone [Hygroton 25 mg Tablet] 50 mg PO QAM 30 Days 04/04/20 Levofloxacin [Levaquin 750 mg Tablet] 750 mg PO DAILY 5 Days #5 tablet 04/04/20 Lisinopril 20 mg PO Q12 #60 tablet 04/04/20 Metformin HCl [Glucophage 500 mg Tablet] 750 mg PO BIDACBS 30 Days 04/04/20 History of Present Illiness History of Present Illness: EDUARDO TREJO is a 44 year old male with a history of hypertension and ADHD, who presents to the hospital with complaints of progressive dyspnea as well as cough. Patient has been having these symptoms for the past 4 days and has only gotten worse. His dyspnea occurs at rest and on exertion. Cough is productive of mildly yellowish sputum. Denies any sick exposures. Admits to mild orthopnea and occasional PND. Denies any history of any heart disease lung diseases. Does have history of smoking. Admits to chills but denies fevers. Of note, patient was at the hospital 3 days ago for similar symptoms during which time a CTA of the chest was done that was negative for PE but did show right sided pneumonia. COVID test from that time was negative. Hospital Course Hospital Course: (1) Acute respiratory failure with hypoxia Is this a current diagnosis for this admission?: Yes Plan: Patient presented on admission with significant hypoxia with SPO2 dropping into the low 80s even on nasal cannula. Patient has no longer required BiPAP since admission. Likely multifactorial secondary to pneumonia, acute pulmonary edema and bronchospasms Patient initially required BiPAP therapy in the IMCU but later was able to be de-escalated to 4 L nasal cannula and subsequently to room air today. Today patient ambulated on room air with SPO2 maintaining from 89 to 93%. As such he does not qualify for home oxygen. (2) Acute diastolic heart failure Is this a current diagnosis for this admission?: Yes Plan: Presents with acute pulmonary edema secondary to acute diastolic heart failure from hypertensive emergency He was treated with aggressive diuresis with IV Lasix as well as blood pressure control starting patient on antihypertensive medications. Patient diuresed very well Lasix was discontinued upon discharge. Goal of therapy is optimization of blood pressure. Echocardiogram done yesterday showed normal ejection fraction of 60% with normal left ventricular diastolic function. (3) Hypertensive emergency Is this a current diagnosis for this admission?: Yes Plan: Hypertensive emergency later resolved with treatment of as above. His uncontrolled blood pressure was secondary to him running out of his blood pressure medications. His regimen at discharge he is chlorthalidone 50 mg daily, lisinopril 20 mg every 12 hours, amlodipine 10 mg daily and Coreg 6.25 mg every 12 hours. (4) Community acquired pneumonia Qualifiers: Laterality: right Lung location: lower lobe of lung Qualified Code(s): J18.9 - Pneumonia, unspecified organism Is this a current diagnosis for this admission?: Yes Plan: Right lower lobe pneumonia noted on CTA from 03/29 2020. COVID-19 PCR test on 03/29/2020 was also negative. Treated with Levaquin IV and switched to p.o. Levaquin upon discharge. He will be taking 5 more days of Levaquin at home. Sputum and blood cultures were obtained and reviewed. (5) Diabetes mellitus, new onset Is this a current diagnosis for this admission?: Yes Plan: Hemoglobin A1c of 8.5. Likely type 2 diabetes mellitus. Lipid panel is unremarkable. I have started patient on metformin twice daily. special education paraeducator and dietitian have consulted with patient. Continue to monitor Accu- Cheks. Sliding scale insulin coverage. (6) Wheezing Is this a current diagnosis for this admission?: Yes Plan: Patient has extensive smoking history. Likely has COPD and is having an acute exacerbation. Has never been diagnosed with COPD before. We will place patient on frequent nebulizer treatments. Wheezing has resolved today on exam. He was treated with IV Solu-Medrol and transitioned to p.o. prednisone. Normal steroids upon discharge. Given prescriptions for albuterol and budesonide inhalers. Recommended to have a PFTs done as outpatient. (7) Pleural effusion Is this a current diagnosis for this admission?: Yes Plan: Small amount of bilateral effusions. Will monitor. No need for thoracentesis given the small amount. (8) Tobacco abuse Is this a current diagnosis for this admission?: Yes Plan: Nicotine patch offered (9) Morbid obesity with BMI of 40.0-44.9, adult Is this a current diagnosis for this admission?: Yes Plan: Dietitian consulted. TSH is normal. Physical Exam Vital Signs: Temp Pulse Resp BP Pulse Ox 98.8 F 99 16 164/76 H 89 L 04/04/20 07:50 04/04/20 07:55 04/04/20 07:55 04/04/20 07:50 04/04/20 07:55 Intake & Output 04/03/20 04/04/20 04/05/20 06:59 06:59 06:59 Intake Total 1551 5338 Output Total 1931 2172 Balance -3110 -289 Weight 127.6 kg 125 kg General appearance: PRESENT: no acute distress, cooperative Neck exam: ABSENT: JVD Respiratory exam: PRESENT: clear to auscultation ruslan, unlabored. ABSENT: tachypnea, wheezes Musculoskeletal exam: PRESENT: ambulatory Neurological exam: PRESENT: alert, awake, oriented to person, oriented to place, oriented to time Results Laboratory Results: WBC 9.4 10^3/uL (4.0-10.5) 04/04/20 06:55 RBC 4.69 10^6/uL (4.35-5.55) 04/04/20 06:55 Hgb 15.1 g/dL (13.5-17.0) 04/04/20 06:55 Hct 43.6 % (37.9-51.0) 04/04/20 06:55 MCV 93 fl (80-97) 04/04/20 06:55 MCH 32.1 pg (27.0-33.4) 04/04/20 06:55 MCHC 34.5 g/dL (32.0-36.0) 04/04/20 06:55 RDW 14.0 % (11.5-14.0) 04/04/20 06:55 Plt Count 294 10^3/uL (150-450) 04/04/20 06:55 Lymph % (Auto) 25.1 % (13-45) 04/04/20 06:55 [place] % (Auto) 10.1 % (3-13) 04/04/20 06:55 Eos % (Auto) 0.7 % (0-6) 04/04/20 06:55 Baso % (Auto) 0.3 % (0-2) 04/04/20 06:55 Absolute Neuts (auto) 6.0 10^3/uL (1.7-8.2) 04/04/20 06:55 Absolute Lymphs (auto) 2.4 10^3/uL (0.5-4.7) 04/04/20 06:55 Absolute Monos (auto) 1.0 10^3/uL (0.1-1.4) 04/04/20 06:55 Absolute Eos (auto) 0.1 10^3/uL (0.0-0.6) 04/04/20 06:55 Absolute Basos (auto) 0.0 10^3/uL (0.0-0.2) 04/04/20 06:55 Total Counted 100 04/03/20 05:07 Seg Neutrophils % 63.8 % (42-78) 04/04/20 06:55 Seg Neuts % (Manual) 63 % (42-78) 04/03/20 05:07 Lymphocytes % (Manual) 19 % (13-45) 04/03/20 05:07 Atypical Lymphs % 8 % (0) 04/03/20 05:07 Monocytes % (Manual) 9 % (3-13) 04/03/20 05:07 Eosinophils % (Manual) 0 % (0-6) 04/03/20 05:07 Basophils % (Manual) 0 % (0-2) 04/03/20 05:07 Metamyelocytes % 1 % (0-1) 04/03/20 05:07 Abs Neuts (Manual) 6.9 10^3/uL (1.7-8.2) 04/03/20 05:07 Abs Lymphs (Manual) 2.9 10^3/uL (0.5-4.7) 04/03/20 05:07 Abs Monocytes (Manual) 1.0 10^3/uL (0.1-1.4) 04/03/20 05:07 Absolute Eos (Manual) 0.0 10^3/uL (0.0-0.6) 04/03/20 05:07 Abs Basophils (Manual) 0.0 10^3/uL (0.0-0.2) 04/03/20 05:07 Platelet Comment ADEQUATE 04/03/20 05:07 Polychromasia SLIGHT 04/03/20 05:07 Basophilic Stippling PRESENT 04/03/20 05:07 Anisocytosis SLIGHT 04/03/20 05:07 PT 13.9 SEC (11.4-15.4) 04/01/20 05:12 INR 1.07 04/01/20 05:12 VBG pH 7.43 (7.30-7.42) H 04/01/20 05:12 VBG pCO2 38.9 mmHg (35-63) 04/01/20 05:12 VBG HCO3 25.4 mmol/L (20-32) 04/01/20 05:12 VBG Base Excess 1.2 mmol/L 04/01/20 05:12 Sodium 133.9 mmol/L (137-145) L 04/04/20 06:55 Potassium 3.7 mmol/L (3.6-5.0) 04/04/20 06:55 Chloride 99 mmol/L (98-107) 04/04/20 06:55 Carbon Dioxide 30 mmol/L (22-30) 04/04/20 06:55 Anion Gap 5 (5-19) 04/04/20 06:55 BUN 30 mg/dL (7-20) H 04/04/20 06:55 Creatinine 1.07 mg/dL (0.52-1.25) 04/04/20 06:55 Est GFR ( Amer) > 60 (>60) 04/04/20 06:55 Est GFR (MDRD) Non-Af > 60 (>60) 04/04/20 06:55 Glucose 198 mg/dL (75-110) H 04/04/20 06:55 POC Glucose 224 mg/dL (70-110) H 04/04/20 11:09 Hemoglobin A1c % 8.5 % (4.7-6.0) H 04/01/20 05:12 Lactic Acid 1.0 mmol/L (0.7-2.1) 04/01/20 12:47 Calcium 8.6 mg/dL (8.4-10.2) 04/04/20 06:55 Phosphorus 4.1 mg/dL (2.5-4.5) 04/02/20 05:07 Magnesium 1.9 mg/dL (1.6-2.3) 04/04/20 06:55 Total Bilirubin 0.5 mg/dL (0.2-1.3) 04/01/20 05:12 Direct Bilirubin 0.0 mg/dL (0.0-0.4) 04/01/20 05:12 Neonat Total Bilirubin Not Reportable 04/01/20 05:12 Neonat Direct Bilirubin Not Reportable 04/01/20 05:12 Neonat Indirect Bili Not Reportable 04/01/20 05:12 AST 31 U/L (17-59) 04/01/20 05:12 ALT 35 U/L (<50) 04/01/20 05:12 Alkaline Phosphatase 75 U/L (38-126) 04/01/20 05:12 Troponin I 0.033 ng/mL 04/01/20 12:47 NT-Pro-B Natriuret Pep 213 pg/mL (<125) H 04/04/20 06:55 Total Protein 5.7 g/dL (6.3-8.2) L 04/01/20 05:12 Albumin 2.9 g/dL (3.5-5.0) L 04/01/20 05:12 Triglycerides 128 mg/dL (<150) 04/02/20 05:07 Cholesterol 142.63 mg/dL (0-200) 04/02/20 05:07 LDL Cholesterol Direct 84 mg/dL (<100) 04/02/20 05:07 VLDL Cholesterol 26.0 mg/dL (10-31) 04/02/20 05:07 HDL Cholesterol 38 mg/dL (>40) L 04/02/20 05:07 TSH 1.66 uIU/mL (0.47-4.68) 04/02/20 05:07 Urine Color YELLOW 04/01/20 08:20 Urine Appearance CLEAR 04/01/20 08:20 Urine pH 6.0 (5.0-9.0) 04/01/20 08:20 Ur Specific [place] 1.009 04/01/20 08:20 Urine Protein 100 mg/dL (NEGATIVE) H 04/01/20 08:20 Urine Glucose (UA) >=500 mg/dL (NEGATIVE) H 04/01/20 08:20 Urine Ketones NEGATIVE mg/dL (NEGATIVE) 04/01/20 08:20 Urine Blood SMALL (NEGATIVE) H 04/01/20 08:20 Urine Nitrite (Reflex) NEGATIVE (NEGATIVE) 04/01/20 08:20 Urine Bilirubin NEGATIVE (NEGATIVE) 04/01/20 08:20 Urine Urobilinogen NEGATIVE mg/dL (<2.0) 04/01/20 08:20 Leukocyte Esterase Rfl NEGATIVE (NEGATIVE) 04/01/20 08:20 Urine RBC (Auto) 1 /HPF 04/01/20 08:20 Urine WBC (Reflex) < 1 /HPF 04/01/20 08:20 Squamous Epi Cells Auto <1 /HPF 04/01/20 08:20 Urine Mucus (Auto) RARE /LPF 04/01/20 08:20 Urine Ascorbic Acid NEGATIVE (NEGATIVE) 04/01/20 08:20 Urine Opiates Screen NEGATIVE 04/01/20 08:20 Urine Methadone Screen NEGATIVE 04/01/20 08:20 Ur Barbiturates Screen NEGATIVE 04/01/20 08:20 Ur Phencyclidine Scrn NEGATIVE 04/01/20 08:20 Ur Amphetamines Screen NEGATIVE 04/01/20 08:20 U Benzodiazepines Scrn NEGATIVE 04/01/20 08:20 Urine Cocaine Screen NEGATIVE 04/01/20 08:20 U Marijuana (THC) Screen NEGATIVE 04/01/20 08:20 04/01/20 04/01/20 04/01/20 05:12 05:12 12:47 Troponin I 0.051 0.033 NT-Pro-B Natriuret Pep 1130 H 04/04/20 06:55 Troponin I NT-Pro-B Natriuret Pep 213 H Impressions: Chest X-Ray 04/01/20 05:17 IMPRESSION: Cardiomegaly with mild interstitial prominence. Small bibasilar effusions, greater on the right. Minimal adjacent airspace opacity copyright 2010 [employer]- All Rights Reserved Plan Time Spent: Less than 30 Minutes Stroke Is this a Stroke Patient?: No Acute Heart Failure - Is this a Heart Failure Patient?: No
== END 2020-04-04 15:02 | disposition home or self-care (01) | DRG 291 ==
LOC: ER 04:48 → EH 07:59 → 5 10:00
PROVIDERS: ADMIT Internal Medicine; ATTEND Internal Medicine
DX: I11.0 Hypertensive heart disease with heart failure (principal); J96.01 Acute respiratory failure with hypoxia; J18.9 Pneumonia, unspecified organism; I50.31 Acute diastolic (congestive) heart failure; I16.1 Hypertensive emergency; J44.1 Chronic obstructive pulmonary disease with (acute) exacerbation; Z68.41 Body mass index [BMI] 40.0-44.9, adult; F17.200 Nicotine dependence, unspecified, uncomplicated; Z88.1 Allergy status to other antibiotic agents; F90.9 Attention-deficit hyperactivity disorder, unspecified type; Z82.49 Family history of ischemic heart disease and other diseases of the circulatory system; Z83.3 Family history of diabetes mellitus; T46.5X6A Underdosing of other antihypertensive drugs, initial encounter; E66.01 Morbid (severe) obesity due to excess calories; E11.9 Type 2 diabetes mellitus without complications
CPT/HCPCS: 36415; 71045; 80048; 80053; 80061; 80307; 81001; 82803; 82962; 83036; 83605; 83735; 83880; 84100; 84443; 84484; 85025; 85610; 87040; 87070; 87205; 93005; 93010; 93306; 94640; 96374; 99285; J0360; J1650; J1815; J1940; J1956; J2930; J7512